=== PATIENT | female | born 1990 | race Caucasian/White ===

== ENCOUNTER 2018-09-18 06:03 | Outpatient (CLI) | payer MEDICAID ==
[~2018-09-18] VITALS: Ht 165.1 cm; Wt 99.8 kg
[~2018-09-18 06:03] MED LIST: AGM875T PO; DICY20TA57 PO; TRM50T PO
[2018-09-18] MEDS ORDERED: VENL150T PO (15:50)
[2018-09-18] MEDS ORDERED: TIZA2TAB3 PO (15:50)
[2018-09-18] MEDS ORDERED: ALPR0.5T7 PO (15:50)
[2018-09-18] MEDS ORDERED: CETI10TA17 PO (15:50)
[2018-09-18] MEDS ORDERED: BUSP7.5T5 PO (15:50)
[2018-09-18] MEDS ORDERED: DICL50TA6 PO (15:50)
[2018-09-18] MEDS ORDERED: PANT40TA3 PO (15:50)
[2018-09-18] MEDS ORDERED: FLUT15.88 NS (15:50)
== END 2018-09-18 16:03 | disposition home or self-care (01) ==
LOC: PREOP 06:03
PROVIDERS: ATTEND Otolaryngology Otolaryngology/Facial Plastic Surgery
DX: Z01.818 Encounter for other preprocedural examination (principal)

== ENCOUNTER 2018-09-21 06:54 | Day surgery (SDC) | payer MEDICAID ==
[2018-09-21] VITALS (11 sets, daily range): BP systolic 104–130; BP diastolic 70–83
[~2018-09-21] VITALS: Ht 165.1 cm; Wt 99.8 kg
[~2018-09-21 06:54] MED LIST changes: +ALPR0.5T7 PO; +BUSP7.5T5 PO; +CETI10TA17 PO; +DICL50TA6 PO; +FLUT15.88 NS; +PANT40TA3 PO; +TIZA2TAB3 PO; +VENL150T PO
--- OUTSIDE RECORDS SUMMARY | 2018-09-21 06:57 | XMS REPORT | Continuity of Care Document ---
Author Organization Unknown Address Unknown Allergies There is no data. Medications There is no data. Problems Date Dx Coded Attending Type Code Diagnosis Diagnosed By 03/25/2010 DELFINA BECKMAN APRN S 682.9 CELLULITIS AND ABSCESS OF UNSPECIFIED SITES 03/25/2010 TEE PEREZ DO K 682.9 CELLULITIS AND ABSCESS OF UNSPECIFIED SITES 03/25/2010 CHIKA JAMA MD 682.9 CELLULITIS AND ABSCESS OF UNSPECIFIED SITES 03/25/2010 CHIKA JAMA MD 682.9 CELLULITIS AND ABSCESS OF UNSPECIFIED SITES 03/25/2010 CHIKA JAMA MD 682.9 CELLULITIS AND ABSCESS OF UNSPECIFIED SITES 03/25/2010 JJ BECKMAN APRNA S 682.9 CELLULITIS AND ABSCESS OF UNSPECIFIED SITES 08/31/2010 JJ BECKMAN APRNA S 462 PHARYNGITIS ACUTE 08/31/2010 TEE PEREZ DO K 462 PHARYNGITIS ACUTE 08/31/2010 CHIKA JAMA MD 462 PHARYNGITIS ACUTE 08/31/2010 CHIKA JAMA MD 462 PHARYNGITIS ACUTE 08/31/2010 CHIKA AJMA MD 462 PHARYNGITIS ACUTE 08/31/2010 MILAGROS BECKMAN APRNNDA S 462 PHARYNGITIS ACUTE 02/24/2012 MILAGROS BECKMAN APRNNDA S 564.1 IRRITABLE BOWEL SYNDROME 02/24/2012 JJ BECKMAN APRNA S 786.52 PAINFUL RESPIRATION 02/24/2012 TEE PEREZ DO K 564.1 IRRITABLE BOWEL SYNDROME 02/24/2012 TEE PEREZ DO K 786.52 PAINFUL RESPIRATION 02/24/2012 CHIKA JAMA MD 564.1 IRRITABLE BOWEL SYNDROME 02/24/2012 CHIKA JAMA MD 786.52 PAINFUL RESPIRATION 02/24/2012 CHIKA JAMA MD 564.1 IRRITABLE BOWEL SYNDROME 02/24/2012 CHIKA JAMA MD 786.52 PAINFUL RESPIRATION 02/24/2012 CHIKA JAMA MD 564.1 IRRITABLE BOWEL SYNDROME 02/24/2012 CHIKA JAMA MD 786.52 PAINFUL RESPIRATION 02/24/2012 RK MORRIS DELFINA S 564.1 IRRITABLE BOWEL SYNDROME 02/24/2012 RK MORRIS, DELFINA S 786.52 PAINFUL RESPIRATION 02/22/2013 PEREZ DO, TEE K 296.32 MO DEPRESSIVE RECURRENT MODERATE 02/22/2013 PEREZ DO, TEE K 455.6 UNSPECIFIED HEMORRHOIDS WITHOUT COMPLICATION 02/22/2013 PEREZ DO, TEE K 724.5 BACKACHE UNSPECIFIED 02/22/2013 PEREZ DO, TEE K 784.0 HEADACHE 02/22/2013 CHIKA JAMA MD 296.32 MO DEPRESSIVE RECURRENT MODERATE 02/22/2013 CHIKA JAMA MD 455.6 UNSPECIFIED HEMORRHOIDS WITHOUT COMPLICATION 02/22/2013 CHIKA JAMA MD 724.5 BACKACHE UNSPECIFIED 02/22/2013 CHIKA JAMA MD 784.0 HEADACHE 02/22/2013 CHIKA JAMA MD 296.32 MO DEPRESSIVE RECURRENT MODERATE 02/22/2013 CHIKA JAMA MD 455.6 UNSPECIFIED HEMORRHOIDS WITHOUT COMPLICATION 02/22/2013 CHIKA JAMA MD 724.5 BACKACHE UNSPECIFIED 02/22/2013 CHIKA JAMA MD 784.0 HEADACHE 02/22/2013 CHIKA JAMA MD 296.32 MO DEPRESSIVE RECURRENT MODERATE 02/22/2013 CHIKA JAMA MD 455.6 UNSPECIFIED HEMORRHOIDS WITHOUT COMPLICATION 02/22/2013 CHIKA JAMA MD 724.5 BACKACHE UNSPECIFIED 02/22/2013 CHIKA JAMA MD 784.0 HEADACHE 08/31/2013 CHIKA JAMA MD 244.9 HYPOTHYROIDISM 08/31/2013 CHIKA JAMA MD 278.00 OBESITY 08/31/2013 CHIKA JAMA MD 244.9 HYPOTHYROIDISM 08/31/2013 CHIKA JAMA MD 278.00 OBESITY 08/31/2013 CHIKA JAMA MD 244.9 HYPOTHYROIDISM 08/31/2013 CHIKA JAMA MD 278.00 OBESITY 10/03/2013 CHIKA JAMA MD 110.5 TINEA CORPORIS 10/03/2013 CHIKA JAMA MD V72.42 EXAMINATION OR TEST POSITIVE RESULT 09/03/2015 JUSTEN CHARLES Z02.1 Encounter for pre-employment examination 09/03/2015 JUSTEN CHARLES Z11.1 Encounter for screening for respiratory tuberculosis 09/15/2015 ESTELLE HUERTA J06.9 Acute upper respiratory infection, unspecified 09/15/2015 ESTELLE HUERTA R30.0 Dysuria 09/15/2015 ESTELLE HUERTA R30.0 Dysuria 11/11/2015 WILLPATTJUSTEN F L25.9 Unspecified contact dermatitis, unspecified cause 11/25/2015 JUSTEN CHARLES F17.210 Nicotine dependence, cigarettes, uncomplicated 11/25/2015 JUSTEN CHARLES Z32.01 Encounter for test, result positive 11/25/2015 JUSTEN CHARLES Z32.00 Encounter for test, result unknown 12/05/2015 ESTELLE HUERTA B96.89 Other specified bacterial agents as the cause of diseases classified elsewhere 12/05/2015 ESTELLE HUERTA F17.210 Nicotine dependence, cigarettes, uncomplicated 12/05/2015 ESTELLE HUERTA J01.90 Acute sinusitis, unspecified 12/05/2015 ESTELLE HUERTA J20.8 Acute bronchitis due to other specified organisms 12/19/2015 ESTELLE HUERTA Z34.81 Encounter for supervision of other normal , first trimester 12/19/2015 ESTELLE HUERTA Z36 Encounter for screening of mother 12/25/2015 ESTELLE HUERTA O21.0 Mild hyperemesis gravidarum 12/25/2015 ESTELLE HUERTA Z3A.09 9 weeks gestation of 12/31/2015 ESTELLE HUERTA O21.0 Mild hyperemesis gravidarum 12/31/2015 ESTELLE HUERTA Z3A.10 10 weeks gestation of 12/31/2015 ESTELLE HUERTA Z34.81 Encounter for supervision of other normal , first trimester 12/31/2015 ESTELLE HUERTA Z36 Encounter for screening of mother 01/19/2016 ESTELLE HUERTA O99.89 Other specified diseases and conditions complicating , childbirth and the puerperium 01/19/2016 ESTELLE HUERTA R10.9 Unspecified abdominal pain 01/19/2016 ESTELLE HUERTA Z3A.13 13 weeks gestation of 01/19/2016 ESTELLE HUERTA R82.99 Other abnormal findings in urine 01/19/2016 ESTELLE HUERTA Z33.1 state, incidental 01/23/2016 ESTELLE HUERTA O26.891 Other specified related conditions, first trimester 01/23/2016 ESTELLE HUERTA R10.9 Unspecified abdominal pain 01/23/2016 ESTELLE HUERTA Z3A.13 13 weeks gestation of 01/28/2016 ESTELLE HUERTA Z34.92 Encounter for supervision of normal , unspecified, second trimester 01/28/2016 ESTELLE HUERTA Z3A.14 14 weeks gestation of 02/25/2016 ESTELLE HUERTA Z34.92 Encounter for supervision of normal , unspecified, second trimester 02/25/2016 ESTELLE HUERTA Z3A.18 18 weeks gestation of 03/05/2016 JUSTEN CHARLES J02.9 Acute pharyngitis, unspecified 03/08/2016 ESTELLE HUERTA Z36 Encounter for screening of mother 03/24/2016 ESTELLE HUERTA Z34.92 Encounter for supervision of normal , unspecified, second trimester 03/24/2016 ESTELLE HUERTA Z3A.22 22 weeks gestation of 04/01/2016 ESTELLE HUERTA J01.90 Acute sinusitis, unspecified 04/01/2016 ESTELLE HUERTA Z33.1 state, incidental 04/07/2016 JUSTEN CHARLES B96.89 Other specified bacterial agents as the cause of diseases classified elsewhere 04/07/2016 JUSTEN CHARLES F17.210 Nicotine dependence, cigarettes, uncomplicated 04/07/2016 ALEJANDRA CHARLESIS F J20.8 Acute bronchitis due to other specified organisms 04/07/2016 JUSTEN CHARLES F Z33.1 state, incidental 04/21/2016 ESTELLE HUERTA Z34.92 Encounter for supervision of normal , unspecified, second trimester 04/21/2016 ESTELLE HUERTA Z3A.26 26 weeks gestation of 04/21/2016 ESTELLE HUERTA E87.6 Hypokalemia 04/21/2016 ESTELLE HUERTA O99.280 Endocrine, nutritional and metabolic diseases complicating , unspecified trimester 05/03/2016 ESTELLE HUERTA O99.89 Other specified diseases and conditions complicating , childbirth and the puerperium 05/03/2016 ESTELLE HUERTA R51 Headache 05/03/2016 ESTELLE HUERTA Z3A.28 28 weeks gestation of 05/05/2016 ESTELLE HUERTA O26.892 Other specified related conditions, second trimester 05/05/2016 ESTELLE HUERTA R51 Headache 05/05/2016 ESTELLE HUERTA Z3A.28 28 weeks gestation of 05/06/2016 ESTELLE HUERTA O26.892 Other specified related conditions, second trimester 05/06/2016 ESTELLE HUERTA R51 Headache 05/06/2016 ESTELLE HUERTA Z3A.28 28 weeks gestation of 05/10/2016 ESTELLE HUERTA B96.89 Other specified bacterial agents as the cause of diseases classified elsewhere 05/10/2016 ESTELLE HUERTA J06.9 Acute upper respiratory infection, unspecified 05/10/2016 ESTELLE HUERTA T81.4XXA Infection following a procedure, initial encounter 05/10/2016 ESTELLE HUERTA Z33.1 state, incidental 2016 ESTELLE HUERTA Z23 Encounter for immunization 2016 ESTELLE HUERTA Z34.93 Encounter for supervision of normal , unspecified, third trimester 2016 ESTELLE HUERTA Z3A.30 30 weeks gestation of 05/19/2016 ESTELLE HUERTA Z34.93 Encounter for supervision of normal , unspecified, third trimester 06/01/2016 ESTELLE HUERTA O36.8930 Maternal care for other specified problems, third trimester, not applicable or unspecified 06/01/2016 ESTELLE HUERTA Z3A.32 32 weeks gestation of 06/01/2016 ESTELLE HUERTA B96.89 Other specified bacterial agents as the cause of diseases classified elsewhere 06/01/2016 ESTELLE HUERTA J01.90 Acute sinusitis, unspecified 06/01/2016 ESTELLE HUERTA O99.513 Diseases of the respiratory system complicating , third trimester 06/01/2016 ESTELLE HUERTA Z3A.32 32 weeks gestation of 06/01/2016 ESTELLE HUERTA O36.8930 Maternal care for other specified problems, third trimester, not applicable or unspecified 06/01/2016 ESTELLE HUERTA Z3A.32 32 weeks gestation of 06/04/2016 ESTELLE HUERTA O36.8930 Maternal care for other specified problems, third trimester, not applicable or unspecified 06/04/2016 ESTELLE HUERTA Z36 Encounter for screening of mother 06/04/2016 ESTELLE HUERTA3A.32 32 weeks gestation of 06/04/2016 ESTELLE HUERTA O60.03 labor without delivery, third trimester 06/04/2016 ESTELLE HUERTA Z3A.32 32 weeks gestation of 06/04/2016 ESTELLE HUERTA O36.8930 Maternal care for other specified problems, third trimester, not applicable or unspecified 06/04/2016 ESTELLE HUERTA Z36 Encounter for screening of mother 06/04/2016 ESTELLE HUERTA Z3A.32 32 weeks gestation of 06/15/2016 ESTELLE HUERTA Z34.93 Encounter for supervision of normal , unspecified, third trimester 06/15/2016 ESTELLE HUERTA Z3A.34 34 weeks gestation of 06/24/2016 ESTELLE HUERTA M54.5 Low back pain 06/24/2016 ESTELLE HUERTA O99.89 Other specified diseases and conditions complicating , childbirth and the puerperium 06/24/2016 ESTELLE HUERTA Z3A.35 35 weeks gestation of 06/30/2016 ESTELLE HUERTA Z34.93 Encounter for supervision of normal , unspecified, third trimester 06/30/2016 ESTELLE HUERTA Z3A.36 36 weeks gestation of 07/07/2016 ESTELLE HUERTA Z34.93 Encounter for supervision of normal , unspecified, third trimester 07/07/2016 ESTELLE HUERTA Z3A.37 37 weeks gestation of 07/11/2016 ESTELLE HUERTA O36.8130 Decreased movements, third trimester, not applicable or unspecified 07/11/2016 ESTELLE HUERTA Z3A.38 38 weeks gestation of 07/11/2016 ESTELLE HUERTA O36.8130 Decreased movements, third trimester, not applicable or unspecified 07/11/2016 ESTELLE HUERTA Z3A.38 38 weeks gestation of 07/13/2016 ESTELLE HUERTA O99.89 Other specified diseases and conditions complicating , childbirth and the puerperium 07/13/2016 ESTELLE HUERTA R51 Headache 07/13/2016 ESTELLE HUERTA Z3A.38 38 weeks gestation of 07/14/2016 ESTELLE HUERTA O47.1 False labor at or after 37 completed weeks of gestation 07/15/2016 ESTELLE HUERTA O47.1 False labor at or after 37 completed weeks of gestation 07/16/2016 ESTELLE HUERTA Z34.93 Encounter for supervision of normal , unspecified, third trimester 07/19/2016 ESTELLE HUERTA O34.211 Maternal care for low transverse scar from previous delivery 07/19/2016 ESTELLE HUERTA O74.2 Cardiac complications of anesthesia during labor and delivery 07/19/2016 ESTELLE HUERTA Z37.0 Single live 07/19/2016 ESTELLE HUERTA Z3A.39 39 weeks gestation of 07/21/2016 ESTELLE HUERTA F17.210 Nicotine dependence, cigarettes, uncomplicated 07/21/2016 ESTELLE HUERTA I95.89 Other hypotension 07/21/2016 ESTELLE HUERTA O26.53 Maternal hypotension syndrome, third trimester 07/21/2016 ESTELLE HUERTA O34.211 Maternal care for low transverse scar from previous delivery 07/21/2016 ESTELLE HUERTA O69.81X0 Labor and delivery complicated by cord around neck, without compression, not applicable or unspecified 07/21/2016 ESTELLE HUERTA O74.2 Cardiac complications of anesthesia during labor and delivery 07/21/2016 ESTELLE HUERTA O75.89 Other specified complications of labor and delivery 07/21/2016 ESTELLE HUERTA O99.334 Smoking (tobacco) complicating childbirth 07/21/2016 ESTELLE HUERTA R00.1 Bradycardia, unspecified 07/21/2016 ESTELLE HUERTA R51 Headache 07/21/2016 ESTELLE HUERTA Z37.0 Single live 07/21/2016 ESTELLE HUERTA Z3A.39 39 weeks gestation of 07/21/2016 ESTELLE HUERTA Z79.899 Other longterm (current) drug therapy 07/21/2016 ESTELLE HUERTA Z80.9 Family history of malignant neoplasm, unspecified 07/21/2016 ESTELLE HUERTA Z82.49 Family history of ischemic heart disease and other diseases of the circulatory system 07/21/2016 ETSELLE HUETRA Z83.3 Family history of diabetes mellitus 07/21/2016 ESTELLE HUERTA Z83.49 Family history of other endocrine, nutritional and metabolic diseases 07/21/2016 ESTELLE HUERTA Z90.49 Acquired absence of other specified parts of digestive tract 07/26/2016 ESTELLE HUERTA N99.840 Postprocedural hematoma of a genitourinary system organ or structure following a genitourinary system procedure 07/29/2016 ESTELLE HUERTA N99.840 Postprocedural hematoma of a genitourinary system organ or structure following a genitourinary system procedure 07/29/2016 ESTELLE HUERTA O90.2 Hematoma of obstetric wound 07/31/2016 MAKSIM BECERRA K91.870 Postprocedural hematoma of a digestive system organ or structure following a digestive system procedure 07/31/2016 MAKSIM BECERRA R10.9 Unspecified abdominal pain 08/09/2016 ESTELLE HUERTA O90.2 Hematoma of obstetric wound 08/09/2016 ESTELLE HUERTA O90.89 Other complications of the puerperium, not elsewhere classified 09/07/2016 ESTELLE HUERTA F53 Puerperal psychosis 09/07/2016 ESTELLE HUERTA Z00.00 Encounter for general adult medical examination without abnormal findings 03/07/2017 ESTELLE HUERTA J01.90 Acute sinusitis, unspecified 04/27/2017 ESTELLE HUERTA Z32.01 Encounter for test, result positive 04/27/2017 ESTELLE HUERTA Z32.00 Encounter for test, result unknown 04/29/2017 ESTELLE HUERTA Z36.87 Encounter for screening for uncertain dates 06/10/2017 ESTELLE HUERTA J02.9 Acute pharyngitis, unspecified 06/10/2017 ESTELLE HUERTA J02.9 Acute pharyngitis, unspecified 01/19/2018 ESTELLE HUERTA B96.89 Other specified bacterial agents as the cause of diseases classified elsewhere 01/19/2018 ESTELLE HUERTA J20.8 Acute bronchitis due to other specified organisms 02/02/2018 ESTELLE HUERTA B96.89 Other specified bacterial agents as the cause of diseases classified elsewhere 02/02/2018 ESTELLE HUERTA J20.8 Acute bronchitis due to other specified organisms 02/07/2018 ESTELLE HUERTA B37.3 Candidiasis of vulva and vagina 02/07/2018 ESTELLE HUERTA N89.8 Other specified noninflammatory disorders of vagina 04/20/2018 ESTELLE HUERTA F32.9 Major depressive disorder, single episode, unspecified 04/20/2018 ESTELLE HUERTA R45.851 Suicidal ideations 04/24/2018 ESTELLE HUERTA B96.89 Other specified bacterial agents as the cause of diseases classified elsewhere 04/24/2018 ESTELLE HUERTA F32.9 Major depressive disorder, single episode, unspecified 04/24/2018 ESTELLE HUERTA J20.8 Acute bronchitis due to other specified organisms 05/26/2018 ESTELLE HUERTA F41.8 Other specified anxiety disorders 07/07/2018 ESTELLE HUERTA F41.9 Anxiety disorder, unspecified 07/07/2018 ESTELLE HUERTA N89.8 Other specified noninflammatory disorders of vagina 07/07/2018 ESTELLE HUERTA R30.0 Dysuria 07/07/2018 ESTELLE HUERTA Z11.3 Encounter for screening for infections with a predominantly sexual mode of transmission 07/07/2018 ESTELLE HUERTA N89.8 Other specified noninflammatory disorders of vagina 07/07/2018 ESTELLE HUERTA R30.0 Dysuria 08/24/2018 ESTELLE HUERTA G89.29 Other chronic pain 08/24/2018 ESTELLE HUERTA R10.9 Unspecified abdominal pain 09/11/2018 ESTELLE HUERTA H92.01 Otalgia, right ear 09/11/2018 ESTELLE HUERTA J03.91 Acute recurrent tonsillitis, unspecified 09/11/2018 ESTELLE HUERTA R51 Headache 09/11/2018 ESTELLE HUERTA R55 Syncope and collapse 09/11/2018 ESTELLE HUERTA R55 Syncope and collapse Procedures Code Description Performed By Performed On 1364073 PAP SMEAR (RESULT ONLY) 08/30/2009 84534 XRAY CHEST 2 VIEW 03/03/2012 28421 TSH 09/06/2013 53959 ROUTINE VENIPUNCTURE 09/17/2013 96873 TSH 09/18/2013 Results There is no data. Encounters ACCT No. Visit Date/Time Discharge Status Pt. Type Provider Facility Loc./Unit Complaint [id number] 09/11/2018 11:06:00 09/11/2018 15:06:00 DIS Outpatient [facility] [id number] 09/11/2018 10:30:00 09/11/2018 11:30:00 DIS Outpatient [facility] [id number] 08/24/2018 10:45:00 08/24/2018 14:45:00 DIS Outpatient ESTELLE HUERTA [id number] 08/24/2018 10:15:00 08/24/2018 [facility]:15:[id number]/07/2018 10:44:00 07/07/2018 14:44:00 DIS Outpatient ESTELLE HUERTA [id number] 07/07/2018 10:15:00 07/07/2018 11:15:00 DIS Outpatient [facility] [id number] 05/26/2018 15:15:00 05/26/2018 16:15:00 DIS Outpatient [facility] [id number] 04/24/2018 15:00:00 04/24/2018 16:00:00 DIS Outpatient DEANNA [facility] CL [id number] 04/20/2018 10:15:00 04/20/2018 11:15:00 DIS Outpatient DEANNA [facility] CL [id number] 02/07/2018 14:03:00 02/07/2018 18:03:00 DIS Outpatient DEANNA [facility] OT [id number] 02/07/2018 13:45:00 02/07/2018 14:45:00 DIS Outpatient DEANNA [facility] [id number] 02/02/2018 15:30:00 02/02/2018 16:30:00 DIS Outpatient DEANNA [facility] [id number] 01/19/2018 14:45:00 01/19/2018 15:45:00 [facility] [id number] 06/10/2017 16:00:00 06/10/2017 20:00:00 DIS Outpatient ESTELLE HUERTA [id number] 06/10/2017 15:15:00 06/10/2017 16:15:00 [id number] 05/30/2017 10:15:00 05/30/2017 11:15:00 [id number] 04/29/2017 12:53:00 04/29/2017 16:53:00 DIS Outpatient ESTELLE HUERTA [id number] 04/27/2017 10:06:00 04/27/2017 14:06:00 DIS Outpatient ESTELLE HUERTA [id number] 04/27/2017 09:30:00 04/27/2017 10:30:00 DIS Outpatient DEANNA [facility] CL [id number] 03/31/2017 13:45:00 03/31/2017 23:59:59 CLS Outpatient [id number] 03/07/2017 16:15:00 03/07/2017 17:15:00 DIS Outpatient DEANNA [facility] [id number] 09/07/2016 14:15:00 09/07/2016 15:15:00 [id number] 08/09/2016 14:47:00 08/09/2016 18:47:00 DIS OP DEANNA [facility] OT [id number] 08/09/2016 14:45:00 08/09/2016 15:45:00 [facility] [id number] 07/31/2016 20:07:00 07/31/2016 20:39:00 DIS ED MARIAM [facility] ED [id number] 07/29/2016 14:00:00 07/29/2016 18:00:00 DIS OP DEANNA ESTELLE [id number] 07/29/2016 10:30:00 07/29/2016 11:30:00 [facility] [id number] 07/26/2016 14:45:00 07/26/2016 15:45:00 [facility] [id number] 07/19/2016 05:43:00 07/21/2016 10:05:00 [id number] 07/19/2016 05:43:00 07/19/2016 05:43:00 [facility] [id number] 07/16/2016 10:58:00 07/16/2016 14:58:00 [id number] 07/14/2016 20:54:00 07/15/2016 00:54:00 DIS OP ESTELLE HUERTA [id number] 07/13/2016 09:30:00 07/13/2016 10:30:00 [id number] 07/11/2016 12:34:00 07/11/2016 16:34:00 DIS OP DEANNA ESTELLE [id number] 07/07/2016 10:00:00 07/07/2016 14:00:00 [id number] 06/30/2016 13:36:00 06/30/2016 17:36:00 [id number] 06/30/2016 13:30:00 06/30/2016 17:30:00 DIS RY DEANNA ESTEL[facility] [id number] 06/24/2016 11:15:00 06/24/2016 15:15:00 DIS RY DEANNA [facility] [id number] 06/15/2016 13:30:00 06/15/2016 17:30:00 DIS RY DEANNA [facility] [id number] 06/04/2016 12:00:00 06/04/2016 16:00:00 DIS OP DEANNA [facility] OT [id number] 06/04/2016 11:30:00 06/04/2016 15:30:00 DIS RY DEANNA [facility] [id number] 06/01/2016 15:07:00 06/01/2016 19:07:00 DIS OP DEANNAESTELLE [id number] 06/01/2016 13:30:00 06/01/2016 17:30:00 DIS MARIANGEL HUERTA [facility] [id number] 05/26/2016 14:18:00 05/26/2016 18:18:00 DIS OP SHEYLA [place] [id number] 05/19/2016 12:54:00 05/19/2016 16:54:00 DIS OP DEANNA ESTELLE [id number] 2016 09:00:00 2016 13:00:00 DIS MARIANGEL HUERTA [facility] [id number] 05/10/2016 09:15:00 05/10/2016 [facility]:15:[facility] [id number] 05/05/2016 21:19:00 05/06/2016 01:19:00 DIS OP DEANNA ESTELLE Chen [id number] 05/03/2016 10:00:00 05/03/2016 14:00:00 [facility] [id number] 04/21/2016 10:23:00 04/21/2016 14:23:00 DIS OP DEANNA [facility] OT [id number] 04/21/2016 10:00:00 04/21/2016 14:00:00 DIS RY DEANNA [facility] [id number] 04/07/2016 10:00:00 04/07/2016 14:00:00 [id number]2016 11:00:00 04/01/2016 15:00:00 [facility] [id number] 03/24/2016 10:30:00 03/24/2016 14:30:00 [facility] [id number] 03/08/2016 09:57:00 03/08/2016 13:57:00 DIS OP DEANNA [facility] [id number] 03/05/2016 09:30:00 03/05/2016 13:30:00 [facility] [id number] 02/25/2016 09:30:00 02/25/2016 13:30:00 [facility] [id number] 01/28/2016 09:45:00 01/28/2016 13:45:00 [facility] [id number] 01/23/2016 08:49:00 01/23/2016 12:49:00 [id number] 01/19/2016 15:25:00 01/19/2016 19:25:00 [id number] 01/19/2016 15:00:00 01/19/2016 19:00:00 [facility] [id number] 12/31/2015 10:15:00 12/31/2015 14:15:00 [facility] [id number] 12/25/2015 16:15:00 12/25/2015 20:15:00 [facility] [id number] 12/19/2015 14:51:00 12/19/2015 18:51:00 [id number] 12/05/2015 09:15:00 12/05/2015 13:15:00 [facility] [id number] 11/25/2015 10:13:00 11/25/2015 14:13:00 [id number] 11/25/2015 09:30:00 11/25/2015 13:30:00 [id number] 11/11/2015 14:45:00 11/11/2015 18:45:00 [facility] [id number] 09/15/2015 12:00:00 09/15/2015 16:00:00 [id number] 09/15/2015 11:30:00 09/15/2015 15:30:00 [facility] [id number] 09/03/2015 16:00:00 09/03/2015 [facility]:00:[id number]/2018 13:30:00 PEN Outpatient [id number] 08/30/2016 15:00:00 PEN RY [id number] 07/29/2016 13:00:00 PEN OP DEANNA [facility] [id number] 07/19/2016 15:04:00 [id number] 07/14/2016 15:31:00 [id number] 07/14/2016 10:00:00 PEN RY [id number] 07/11/2016 15:30:00 [facility] [id number] 06/04/2016 11:29:00 [facility] [id number] 06/01/2016 11:28:00 [facility] [id number] 05/31/2016 13:30:00 PEN RY [id number] 05/05/2016 15:50:00 [facility] [id number] 12/31/2015 10:48:00 [id number] 10/03/2013 16:31:00 10/03/2013 23:59:59 CLS Outpatient CHIKA JAMA MD [id number] 09/17/2013 16:34:00 09/17/2013 23:59:59 CLS Outpatient CHIKA JAMA MD [id number] 08/31/2013 16:13:00 08/31/2013 23:59:59 CLS Outpatient CHIKA JAMA MD [id number] 02/22/2013 14:35:00 02/22/2013 23:59:59 CLS Outpatient TEE PEREZ DO [id number] 04/24/2012 11:09:00 04/24/2012 23:59:59 CLS Outpatient DELFINA BECKMAN APRN [id number] 02/24/2012 15:46:00 02/24/2012 23:59:59 CLS Outpatient DELFINA BECKMAN APRN
--- OUTSIDE RECORDS SUMMARY | 2018-09-21 06:57 | XMS REPORT ---
Author Author Migration, Doctor Organization [facility] Address Unknown Phone Unavailable Care Team Providers Care Machine Sole Leveler Name Role Phone Migration, Doctor Unavailable Unavailable PROBLEMS Type Condition ICD9-CM Code HND07-LC Code Onset Dates Condition Status SNOMED Code Problem Painful respiration 786.52 Active 15186329 Problem Headache 784.0 Active 52359743 Problem Unspecified backache 724.5 Active 242123061 Problem Major depressive disorder, recurrent episode, moderate 296.32 Active 26682698 Problem examination or test, positive result V72.42 Active 432505574 Problem Dermatophytosis of the body 110.5 Active 028530690 Problem Irritable bowel syndrome 564.1 Active 67690316 Problem Unspecified hemorrhoids without mention of complication 455.6 Active 68298266 Problem Obesity, unspecified 278.00 Active 725508580 Problem Unspecified hypothyroidism 244.9 Active 74031156 ALLERGIES No Information ENCOUNTERS Encounter Location Date Diagnosis [facility] [address] [place] [phone] August, Normal physical exam Z00.[address] [place] [id number] [place] [address] Jul, [place] [id number] [place] [address] Jul, [facility] [address] [place] [phone] Oct, [facility] [address] [place] [id number] [place] [phone] Oct, [facility] [address] [place] [phone] Sep, [facility] [id number] [place] [phone] Sep, [facility] [address] [place] [phone] Sep, [facility] [address] [facility] [id number] [place] [address] Sep, [facility] [address] [place] [facility] [place] [address] Sep, [facility] [address] [facility] [id number], [place] [address] Sep, [facility] [place] [address] [facility] [place] [address] August, [facility] [address] [facility] [id number] [place] [address] August, nay[facility] [address] [place] [facility] [place] [address] Feb, [facility] [address] [facility] [id number] [place] [address] Feb, [facility] [id number] [place] [address] Apr, [facility] [address] [facility] [id number] [place] [address] Apr, [facility] [address] [id number] [place] [address] Apr, [facility] [address] [id number] [place] [address] Feb, [facility] [address] [id number] [place] [address] Feb, [facility] [address] [id number], [place] [address] 15 Feb, 2012 [facility] [place] [facility] [address] [facility] [id number] [place] [address] 15 Feb, 2012 [facility] [place] [facility] [address] [facility] [id number] [place] [address] 11 Dec, 2011 [facility] [address] [facility] [id number], [place] [address] Mar, [facility] [address] [facility] [id number] [place] [address] Mar, IMMUNIZATIONS No Known Immunizations SOCIAL HISTORY Never Assessed REASON FOR VISIT [facility] PLAN OF CARE VITAL SIGNS MEDICATIONS No Known Medications RESULTS No Results PROCEDURES No Known procedures INSTRUCTIONS MEDICATIONS ADMINISTERED No Known Medications MEDICAL (GENERAL) HISTORY Type Description Date Surgical History 2014 Surgical History D&C 2015 Surgical History 2017 Surgical History gallbladder 2007 Hospitalization History child
--- OUTSIDE RECORDS SUMMARY | 2018-09-21 06:57 | XMS REPORT ---
Author Author Migration, Doctor Organization [facility] Address Unknown Phone Unavailable Care Team Providers Care Software Support Technician Name Role Phone Migration, Doctor Unavailable Unavailable PROBLEMS Type Condition ICD9-CM Code RRQ10-GG Code Onset Dates Condition Status SNOMED Code Problem Painful respiration 786.52 Active 16145926 Problem Headache 784.0 Active 79206755 Problem Unspecified backache 724.5 Active 730521829 Problem Major depressive disorder, recurrent episode, moderate 296.32 Active 89671884 Problem examination or test, positive result V72.42 Active 177735943 Problem Dermatophytosis of the body 110.5 Active 383378694 Problem Irritable bowel syndrome 564.1 Active 16176005 Problem Unspecified hemorrhoids without mention of complication 455.6 Active 29187552 Problem Obesity, unspecified 278.00 Active 711610249 Problem Unspecified hypothyroidism 244.9 Active 75948065 ALLERGIES No Information ENCOUNTERS Encounter Location Date Diagnosis [facility] [address] [place] [address] August, Normal physical exam Z00.00 [place] [id number] [place] [phone] Jul, [place] [id number] [place] [address] Jul, [facility] [address] [place] [address] Oct, [facility] [address] [place] [id number] [place] [address] Oct, [facility] [address] [place] [address] Sep, [facility] [address] [place] [address] [id number] [place] [address] Sep, [facility] [address] [place] [address] Sep, [facility] [address] [facility] [id number] [place] [address] Sep, nay[facility] [address] [facility] [place] [address] Sep, [facility] [address] [facility] [id number] [place] [address] Sep, [facility] [place] [address] [facility] [place] [address] August, [facility] [address] [facility] [id number] [place] [address] August, nay[facility] [address] [facility] [place] [address] Feb, [facility] [address] [facility] [id number] [place] [address] Feb, [facility] [address] [id number] [place] [address] Apr, [facility] [address] [facility] [id number] [place] [address] Apr, [facility] [address] [id number] [place] [address] Apr, [facility] [address] [id number] [place] [address] Feb, [facility] [address] [id number] [place] [address] Feb, [facility] [address] [id number] [place] [address] 15 Feb, 2012 [facility] [place] [facility] [address] [facility] [id number] [place] [address] 15 Feb, [address] [facility] [place] [facility] [address] [facility] [id number] [place] [address] 11 Dec, 2011 [facility] [address] [facility] [id number] [place] [address] Mar, [facility] [address] [facility] [id number] [place] [address] Mar, IMMUNIZATIONS No Known Immunizations SOCIAL HISTORY Never Assessed REASON FOR VISIT [facility] PLAN OF CARE VITAL SIGNS MEDICATIONS Medication Instructions Dosage Frequency Start Date End Date Duration Status Questran Light 4 gram 4 g by Oral route 1 time per dayquantity for 1 month at 4 g per day. Apr, Active Terbinafine 1 % 1 clark by Topical route 2 times per day Sep, Active Anusol-HC 2.5 % apply to the affected area(s) by topical route 4 times per day Sep, Active RESULTS No Results PROCEDURES No Known procedures INSTRUCTIONS MEDICATIONS ADMINISTERED No Known Medications MEDICAL (GENERAL) HISTORY Type Description Date Surgical History 2014 Surgical History D&C 2016 Surgical History 2017 Surgical History gallbladder 2007 Hospitalization History child
--- OUTSIDE RECORDS SUMMARY | 2018-09-21 06:57 | XMS REPORT ---
Author Author CHIKA JAMA [facility] Address [address] [place] [address] Care Team Providers Care Firefighting Equipment Specialist Name Role Phone CHIKA JAMA Unavailable PROBLEMS Type Condition ICD9-CM Code SWL95-TM Code Onset Dates Condition Status SNOMED Code Problem Painful respiration 786.52 Active 17113114 Problem Unspecified backache 724.5 Active 827082074 Problem Headache 784.0 Active 29113830 Problem examination or test, positive result V72.42 Active 900545565 Problem Dermatophytosis of the body 110.5 Active 046961528 Problem Major depressive disorder, recurrent episode, moderate 296.32 Active 48953878 Problem Unspecified hemorrhoids without mention of complication 455.6 Active 80862779 Problem Irritable bowel syndrome 564.1 Active 02193507 Problem Unspecified hypothyroidism 244.9 Active 10642883 Problem Obesity, unspecified 278.00 Active 991436201 ALLERGIES No Known Allergies SOCIAL HISTORY Never Assessed PLAN OF CARE Activity Details Follow Up prn Reason: VITAL SIGNS Height 66 in 2016-09-02 Weight 233.8 lbs 2016-09-02 Temperature 98.0 degrees Fahrenheit 2016-09-02 Heart Rate 70 bpm 2016-09-02 Respiratory Rate 20 2016-09-02 BMI 37.73 kg/m2 2016-09-02 Blood pressure systolic 119 mmHg 2016-09-02 Blood pressure diastolic 81 mmHg 2016-09-02 MEDICATIONS No Known Medications RESULTS No Results PROCEDURES No Known procedures IMMUNIZATIONS No Known Immunizations MEDICAL (GENERAL) HISTORY Type Description Date Surgical History 2014 Surgical History D&C 2015 Surgical History 2017 Surgical History gallbladder 2007 Hospitalization History child
--- NOTE | 2018-09-21 07:10 | Progress Note-Pre Operative ---
Pre-Operative Progress Note H&P Reviewed The H&P was reviewed, patient examined and no changes noted. Date Seen by Provider: Sep 21, 2018 Time Seen by Provider: 06:30 Date H&P Reviewed: Sep 21, 2018 Time H&P Reviewed: 06:30 Pre-Operative Diagnosis: Rec Tons, Bilat Chronic NELL MONET NIÑO MD Sep 21, 2018 07:10
[2018-09-21] MEDS: LACTATED RINGERS 1,000 ML IV PRN ×3 (07:45→09:34)
[2018-09-21] MEDS ORDERED: MIDAZOLAM 2 MG/2 ML (VERSED) VIAL ONE (08:04)
[2018-09-21] MEDS ORDERED: fentaNYL INJECTION 100 MCG/2 ML AMP ONE (08:06)
[2018-09-21 08:09] LABS: BASOPHILS % (AUTO) 0 % (0-10); EOSINOPHILS # (AUTO) 0.3 10^3/uL (0.0-0.3); EOSINOPHILS % (AUTO) 4 % (0-10); HEMATOCRIT 40 % (35-52); LYMPHOCYTES # (AUTO) 2.8 X 10^3 (1.0-4.0); LYMPHOCYTES % (AUTO) 31 % (12-44); MEAN CORPUSCULAR HEMOGLOBIN 28 PG (25-34); MEAN CORPUSCULAR HGB CONC 32 G/DL (32-36); MEAN CORPUSCULAR VOLUME 87 FL (80-99); MONOCYTES # (AUTO) 0.6 X 10^3 (0.0-1.0); MONOCYTES % (AUTO) 7 % (0-12); NEUTROPHILS # (AUTO) 5.4 X 10^3 (1.8-7.8); NEUTROPHILS % (AUTO) 58 % (42-75); PLATELET COUNT 231 10^3/uL (130-400); RED CELL DISTRIBUTION WIDTH 14.2 % (10.0-14.5); WHITE BLOOD COUNT 9.2 10^3/uL (4.3-11.0)
[2018-09-21] MEDS ORDERED: proPOfol 200 MG/20 ML (DIPRIVAN) VIAL IV ONE ×2 (08:53→09:03)
[2018-09-21] MEDS ORDERED: ROCURONIUM 10 MG/ML 5 ML SYRINGE IV ONE (08:53)
[2018-09-21] MEDS ORDERED: DEXAMETHASONE 10 MG/ML (DECADRON) 1 ML VIAL ONE (08:54)
[2018-09-21] MEDS ORDERED: ONDANSETRON 4 MG/2 ML (SDV) Z0FRAN ONE ×2 (08:54→09:06)
[2018-09-21] MEDS ORDERED: SEVOFLURANE (ULTANE) 15 ML INHAL SOLN ONE (08:54)
[2018-09-21] MEDS ORDERED: LACTATED RINGERS 1,000 ML IV ONE (08:54)
[2018-09-21] MEDS ORDERED: ESMOLOL 100 MG/10 ML (BREVIBLOC) VIAL ONE (09:04)
--- NOTE | 2018-09-21 09:19 | Progress Note-Post Operative ---
Post-Operative Progess Note Surgeon (s)/Will Call Clerk (s) Surgeon MONET NIÑO MD Will Call Clerk n/a Pre-Operative Diagnosis Rec Tons, Bilat Chronic NELL Post-Operative Diagnosis same Post-Op Procedure Note Date of Procedure: Sep 21, 2018 Name of Procedure Performed: T/A, BMT Description & Findings Description and Findings: n/a Anesthesia Type get Estimated Blood Loss minimal Packing none. Specimen(s) collected/removed tonsils MONET NIÑO MD Sep 21, 2018 09:19
[2018-09-21] MEDS ORDERED: NS IV 1000 ML 1,000 ML IV SCH (09:20)
[2018-09-21] MEDS ORDERED: morphine INJ 10 MG/ML 1ML (SYR OR VIAL) ONE (09:21)
[2018-09-21] MEDS ORDERED: APAP 325 MG/10.15 ML LIQ (TYLENOL) UDC PO PRN (09:30)
[2018-09-21] MEDS ORDERED: fentaNYL INJECTION 100 MCG/2 ML AMP IVP ONE (09:30)
[2018-09-21] MEDS ORDERED: HYDROcodone/APAP 7.5MG-325 MG/15 ML (LORTAB) UDC PO PRN (09:30)
[2018-09-21] MEDS ORDERED: ONDANSETRON 4 MG/2 ML (SDV) Z0FRAN IVP PRN (09:30)
[2018-09-21] MEDS ORDERED: MEPERIDINE (DEMEROL) INJ 50 MG/ML IVP ONE (09:30)
[2018-09-21] MEDS ORDERED: morphine INJ 10 MG/ML 1ML (SYR OR VIAL) IVP ONE (09:30)
[2018-09-21] MEDS ORDERED: HYDR15SO8 PO (10:34)
[2018-09-21] MEDS ORDERED: CIPR5DRO OP (10:34)
[2018-09-21] MEDS ORDERED: TETRACAINESUCKERS MT (10:34)
[2018-09-21] MEDS ORDERED: AMOX250S5 PO (10:34)
[2018-09-21] MEDS ORDERED: DEXAINTSOL PO (10:34)
--- NOTE | 2018-09-21 10:37 | Anesthesia-General Post-Op ---
General Patient Condition Mental Status/LOC: Same as Preop Cardiovascular: Satisfactory Nausea/Vomiting: Absent Respiratory: Satisfactory Pain: Controlled Complications: Absent Post Op Complications Complications None Follow Up Care/Instructions Patient Instructions None needed. Anesthesia/Patient Condition Patient Condition Patient is doing well, no complaints, stable vital signs, no apparent adverse anesthesia problems. No complications reported per nursing. EVERETT FERNANDES CRNA Sep 21, 2018 10:37
== END 2018-09-21 12:25 | disposition home or self-care (01) ==
LOC: SDC 06:54
PROVIDERS: ATTEND Otolaryngology Otolaryngology/Facial Plastic Surgery
DX: H65.23 Chronic serous otitis media, bilateral (principal); J03.91 Acute recurrent tonsillitis, unspecified; J35.3 Hypertrophy of tonsils with hypertrophy of adenoids; F17.210 Nicotine dependence, cigarettes, uncomplicated; F32.9 Major depressive disorder, single episode, unspecified; F41.9 Anxiety disorder, unspecified; G43.909 Migraine, unspecified, not intractable, without status migrainosus; Z79.899 Other long term (current) drug therapy
CPT/HCPCS: 36415; 84703; 85025; 87081; 88304